=== PATIENT | male | born 1965 | race Hispanic/Latino ===

== ENCOUNTER → 2018-07-31 | Outpatient (CLI) | payer OTHER | END | disposition home or self-care (01) | LOC: RAH 14:29 | PROVIDERS: ATTEND Family Medicine | DX: Z13.6 Encounter for screening for cardiovascular disorders (principal) | CPT/HCPCS: 75571 ==

== ENCOUNTER → 2024-08-23 | Outpatient (CLI) | payer OTHER ==
--- NOTE | 2024-08-23 14:32 | HMCIMG ---
CT ABD/PEL WO CON RENAL/APPY HISTORY: Follow-up renal stone COMPARISON: None TECHNIQUE: Multiple sequential axial images of the abdomen and pelvis were obtained from the dome of the diaphragm through symphysis pubis. Patient was not given contrast through intravenous route. Oral contrast was not given. FINDINGS: No pleural effusion is seen bilaterally. There is no evidence of parenchymal disease or pulmonary nodule of the visualized lower lungs. Degenerative changes of the thoracolumbar spine are present. There is levoscoliosis. Bony osteopenia is seen. The heart is not enlarged. The liver, spleen, adrenal glands and pancreas are unremarkable. There is no evidence of hydronephrosis bilaterally. Multiple left renal pelvic stones are seen with the largest measuring 7.7 mm. Tiny 4 mm right renal pelvis stone is seen. Fecal material is seen in the colon. There are normal size retroperitoneal and mesenteric lymph nodes. No ascites is seen. Atherosclerotic changes are present. Appendix is not seen limiting evaluation Pelvic sidewalls are symmetric bilaterally. Bladder is moderately distended without wall thickening. IMPRESSION: 1. There is no evidence of hydronephrosis bilaterally. Multiple left renal pelvic stones are seen with the largest measuring 7.7 mm. Fecal material is seen in the colon. CT was performed with one or more following dose reduction techniques: automated exposure control, adjustment of the mA and kv according to patient's size, or use of a iterative reconstruction technique.
== END | disposition home or self-care (01) ==
LOC: RAH 13:56
PROVIDERS: ATTEND Urology
DX: N20.0 Calculus of kidney (principal); M47.815 Spondylosis without myelopathy or radiculopathy, thoracolumbar region; M41.85 Other forms of scoliosis, thoracolumbar region; N32.89 Other specified disorders of bladder; M85.88 Other specified disorders of bone density and structure, other site; I70.90 Unspecified atherosclerosis
CPT/HCPCS: 74176

== ENCOUNTER → 2024-11-01 | Outpatient (CLI) | payer OTHER ==
--- NOTE | 2024-11-01 12:47 | HMCIMG ---
Exam Type: abdomen supine tomograms Tomogram planes done at 8 and 9 cm. Clinical Information: CALCULUS OF KIDNEY Comparison: None. Findings: Left nephrolithiasis is seen, largest calculus lateral mid pole region, 4 mm. The limited visualization of the rest of the abdomen structures is unremarkable. IMPRESSION: Left nephrolithiasis.
== END | disposition home or self-care (01) ==
LOC: RAH 10:25
PROVIDERS: ATTEND Urology
DX: N20.0 Calculus of kidney (principal)
CPT/HCPCS: 74018; 76100

== ENCOUNTER → 2024-11-29 | Outpatient (CLI) | payer SELFPAY ==
--- NOTE | 2024-11-29 12:36 | HMCIMG ---
Exam Type: abdomen supine tomograms and abdomen series Tomogram planes done at 8 through 12 cm. Clinical Information: CALCULUS OF KIDNEY Comparison: None. Findings: Bilateral nephrolithiasis seen, largest calculus left renal midpole region 9 to 10 mm. On the right side, largest one is upper pole, 8 mm. The limited visualization of the rest of the abdomen structures is unremarkable. IMPRESSION: Bilateral nephrolithiasis.
== END | disposition home or self-care (01) ==
LOC: RAH 10:22
PROVIDERS: ATTEND Urology
DX: N20.0 Calculus of kidney (principal)
CPT/HCPCS: 74018; 76100

== ENCOUNTER → 2025-01-17 | Outpatient (CLI) | payer SELFPAY ==
--- NOTE | 2025-01-17 16:11 | HMCIMG ---
ABD 1VW REASON: Calculus of Kidney FINDINGS: Single image of the abdomen was obtained. There are some faint densities in the left kidney not well seen due to overlying fecal material in the splenic flexure. There are no visible calcific densities on the right. Bones and soft tissues appear unremarkable gas pattern is normal. IMPRESSION: 1. Limited exam due to a large amount solid fecal material in the colon.
--- NOTE | 2025-01-17 16:12 | HMCIMG ---
TOMOGRAM REASON: Calculus of Kidney COMPARISON: None TECHNIQUE: 6 tomographic images were obtained through both kidneys. FINDINGS: There are no visible stones on the right. There are multiple small stone fragments on the left, and middle pole calyces, with at least one fragment in an upper pole calyxes these are all 2 to 3 mm in size. Exam is otherwise unremarkable. IMPRESSION: 1. Multiple small stone fragments visible in the left kidney, not significantly changed since prior study 11/29/2024.
== END | disposition home or self-care (01) ==
LOC: RAH 08:52
PROVIDERS: ATTEND Urology
DX: N20.0 Calculus of kidney (principal); K56.41 Fecal impaction
CPT/HCPCS: 74018; 76100